=== PATIENT | male | born 1935 | race Caucasian/White ===

== ENCOUNTER → 2021-03-17 | Outpatient (CLI) | payer MEDICARE ==
[~2021-03-17] MED LIST: ADVIL200 MG PO; ARICEPT10 MG PO; BENADRYL25 M2 PO; LEXAPRO 10MG10 MG PO; NAMENDA XR 28MG PO; RISPERDAL 0.5M0.5 MG PO
== END ==
LOC: COL.RAD 03-13 15:00 → COL.LAB 13:00 → COL.RAD 13:00 → COL.LAB 14:18
DX: Z01.812 Encounter for preprocedural laboratory examination (principal); F03.90 Unspecified dementia, unspecified severity, without behavioral disturbance, psychotic disturbance, mood disturbance, and anxiety; R32 Unspecified urinary incontinence; R48.2 Apraxia

== ENCOUNTER 2021-04-04 12:17 | Outpatient (CLI) | payer MEDICARE ==
[~2021-04-04] VITALS: Ht 172.7 cm; Wt 77.1 kg
[2021-04-04 12:36] VITALS: BP 118/64; PULSE 56; TEMP 98
--- NOTE | 2021-04-04 13:35 | NUR ---
Report to Seferino HORN, care assumed. Informed of needed return to nuc med and extension given to Seferino HORN Bandaid to site clean dry and intact.
[2021-04-04 13:40] VITALS: BP 125/59; PULSE 46
[2021-04-04 13:45] VITALS: BP 122/62; PULSE 48
[2021-04-04 14:00] VITALS: BP 121/61; PULSE 48
[2021-04-04 14:10] VITALS: BP 130/57; PULSE 47
--- NOTE | 2021-04-04 14:20 | NUR ---
Pt returned to express unit at 1337 from radiology. Pt is able to abulate at this time. Daughter reports gait is "fast".. Pt has steady fluid gait, only stuttering a few times while walking around nurses station in express unit. Pt made it about [address] rn station. PT to nuc med at 1430. Pt back to express for further monitoring. Gait evaluated at 1450, 1550, and 1650. Gait was similar to his initial gait. PT to exit via wheelchair at 1700. I reviewed dc and fu instructions with pt's daughter. We reviewed need to monitor for headaches and infection, and to direct any inquiries to dr. Lemus. Pt did eat dinner while in express unit, no problems swallowing. pt also voided in toilet x 2 while in express unit. No need to change his brief during his stay.
== END 2021-04-04 18:47 | disposition home or self-care (01) ==
LOC: COL.RAD 12:17
DX: F03.90 Unspecified dementia, unspecified severity, without behavioral disturbance, psychotic disturbance, mood disturbance, and anxiety (principal); R26.0 Ataxic gait
CPT/HCPCS: A9548

== ENCOUNTER → 2021-09-26 | Outpatient (CLI) | payer MEDICARE | LOC: COL.RAD 11:31 | DX: R31.9 Hematuria, unspecified (principal) ==